=== PATIENT | female | born 1965 | race Caucasian/White ===

== ENCOUNTER → 2019-09-01 19:51 | Outpatient (BNVA) | payer BC, OTHER, SELFPAY | PROVIDERS: Visit Provider Nurse Practitioner | DX: R35.0 Frequency of micturition (principal) | CPT/HCPCS: 81003 ==

== ENCOUNTER 2020-01-23 10:13 | Outpatient (CLI) | payer BC, SELFPAY ==
--- NOTE | 2020-01-23 10:19 | XR_ITS ---
WS: [id number] HAND LEFT TECHNIQUE: 3 views of the left hand CLINICAL INFORMATION: left finger mass COMPARISON: None. FINDINGS: Normal third digit. Soft tissue edema fourth proximal phalanx. No visualized well-circumscribed soft tissue mass. Radiocarpal joint: Normal. Carpal bones: Normal. XR/XR hand LT min 3V* [id number] IMPRESSION: Soft tissue edema fourth proximal phalanx although no visualized well-circumscr ibed soft tissue mass
== END 2020-01-23 10:14 | disposition home or self-care (01) ==
LOC: RADWPI 10:17
PROVIDERS: Visit Provider Orthopaedic Surgery
DX: R22.9 Localized swelling, mass and lump, unspecified (principal); M79.89 Other specified soft tissue disorders
CPT/HCPCS: 73130

== ENCOUNTER 2021-01-08 10:17 | Outpatient (CLI) | payer OTHER, SELFPAY ==
--- NOTE | 2021-01-08 10:23 | MM_ITS ---
WS: [id number] BILATERAL DIGITAL SCREENING MAMMOGRAPHY WITH CAD CLINICAL INFORMATION: SCREENING HISTORY: Screening mammogram. No current complaints. COMPARISON: TECHNIQUE: Bilateral CC and MLO views. FINDINGS: Scattered fibroglandular densities bilaterally. No suspicious focal mass, asymmetry, calcifications, or architectural distortion. No evidence of malignancy. MM/[id number] IMPRESSION: BI-RADS: 1-Negative FOLLOW UP: 1 Year Follow-up Recommend return to annual screening mammography.
== END 2021-01-08 10:18 | disposition home or self-care (01) ==
LOC: RADSHAW 10:21
PROVIDERS: Visit Provider Nurse Practitioner Family
DX: Z12.31 Encounter for screening mammogram for malignant neoplasm of breast (principal)
CPT/HCPCS: 77067

== ENCOUNTER → 2021-01-22 13:30 | Outpatient (BNVA) | payer OTHER, SELFPAY | PROVIDERS: Visit Provider Obstetrics & Gynecology | DX: N39.3 Stress incontinence (female) (male) (principal); N81.4 Uterovaginal prolapse, unspecified; Z11.52 Encounter for screening for COVID-19 | CPT/HCPCS: 87635 ==

== ENCOUNTER 2021-01-28 14:21 | Observation (INO) | payer SELFPAY ==
[2021-01-26 11:08] VITALS: BMI 29.5
--- NOTE | 2021-01-26 12:43 | ANES.PREANE2 ---
Pre-Anesthetic Assessment Pre-Anesthetic Assessment: Height/Weight: Height 1.75 m Weight 90.718 kg Proposed Procedure: Operation Date: 01/28/21 07:00 Proposed Procedures p Total Vaginal Hysterectomy 97988 [id number] 66805 N81.4 N39.3(Not Applicable) - Nasir Oliver MD s Anterior Repair Anterior Colporrhaphy(Not Applicable) - Nasir Oliver MD s Posterior Repair Posterior Colporrhaphy(Not Applicable) - Nasir Oliver MD s Single incision sling(Not Applicable) - Nasir Oliver MD s Sacrospinous Ligament Suspension(Not Applicable) - Nasir Oliver MD Was Beta Alicia taken within 24 hours: N/A Was Clonidine taken within 24 hours: N/A Social: Social History: No alcohol and No tobacco Exam: Pre-Anes Outpt Exam: alert, oriented x 3, clear to auscultation bilaterally and regular rate & rhythm Airway: Submandibular: WNL Cervical ROM: WNL MP: 2 Dentition: Full History/ROS: No significant history except as noted CV/HEM: CV/HEM: Arrythmia Anesthetic Plan: ASA status: 2 Anesthesia: General Risk of > 500 ml blood loss (7ml/kg in children): No PFSH Anesthesia PFSH: Family History Father Colon cancer, Onset Age: 76 Heart disease Mother Hypertension Denies family history of Ovarian cancer Diabetes Clotting disorder Hyperlipidemia Breast cancer Anesthesia complication Bleeding disorder Uterine cancer Thyroid condition Stroke Social History (Updated 01/26/21 @ 09:37 by Tabitha Rae RN) Smoking and tobacco status: never smoked Alcohol intake: current Alcohol intake frequency: holidays/special occasions only Alcohol type: wine and hard liquor Substance/Drug Use: never Data Anesthesia Cardiac Studies: No Data to Display
[2021-01-28] VITALS (13 sets, daily range): BP systolic 110–127; BP diastolic 68–96; PULSE 67–99; RESP 16–18; TEMP 36.2–37; O2SAT 91–99
[2021-01-28] MEDS: sodium chloride 0.9% 500 ML IV (10:05)
[2021-01-28 10:07] LABS: Basophils # 0.1 10^3/uL (0.0-0.1); Basophils % 1.2 %; Eosinophils # 0.2 10^3/uL (0.0-0.8); Eosinophils % 2.7 %; Hematocrit 47.7 % (37.0-47.0); Hemoglobin 14.9 g/dL (11.5-15.3); Lymphocytes % 33.1 %; Mean Corpuscular HGB Conc 31.2 g/dL (30.0-36.0); Mean Corpuscular Hemoglobin 25.8 pg (28.0-34.0); Mean Corpuscular Volume 82.7 fL (81-99); Mean Platelet Volume 11.6 fL (7.4-10.4); Monocytes # 0.5 10^3/uL (0.2-0.9); Monocytes % 7.8 %; Neutrophils # 3.29 10^3/uL (1.8-7.7); Neutrophils % 54.9 %; Nucleated Red Blood Cells % 0 %; Platelet Count 240 10^3/cmm (130-400); Red Blood Count 5.77 10^6/uL (4.1-5.3); Red Cell Distribution Width 14.7 % (12.1-15.1)
[2021-01-28] MEDS: scopolamine 1.5 Patch 1 PATCH TRANSDERMA (10:09)
--- NOTE | 2021-01-28 11:03 | W.PM.OPSUD ---
Surgery/Procedure H&P Update DATE OF PROCEDURE: January 28, 2021 DATE H&P PERFORMED: 01/26/21 H&P UPDATE INFORMATION: I have reviewed H&P completed within last 30 days, I have examined patient prior to procedure and No changes to prior documentation PREOP DIAGNOSIS: Uterine prolapse stage III PLANNED PROCEDURE: Operation Date: 01/28/21 10:40 Proposed Procedures p Total Vaginal Hysterectomy 19665 [id number] 40826 64395 N81.4 N39.3(Not Applicable) - Nasir Oliver MD s Anterior Repair Anterior Colporrhaphy(Not Applicable) - Nasir Oliver MD s Posterior Repair Posterior Colporrhaphy(Not Applicable) - Nasir Oliver MD s Single incision sling(Not Applicable) - Nasir Oliver MD s Sacrospinous Ligament Suspension(Not Applicable) - Nasir Oliver MD
[2021-01-28 11:05] LABS: Alanine Aminotransferase 38 U/L (0-33); Alkaline Phosphatase 58 IU/L (35-105); Anion Gap 12.4 (5-19); Aspartate Amino Transferase 22 U/L (0-32); Blood Urea Nitrogen 9 mg/dL (6-20); Calcium 8.7 mg/dL (8.5-10.5); Carbon Dioxide 28 mmol/L (22-29); Chloride 104 mmol/L (98-107); Globulin 2.9 g/dL (1.3-4.6); Glomerular Filtration Rate 104.2 mL/min (90-130); Glucose 100 mg/dL (65-115); Osmolality Calculated 289 mOsm/kg (285-295); Potassium 4.4 mmol/L (3.5-5.1); Sodium 140 mmol/L (136-145); Total Bilirubin 0.3 mg/dL (0.15-1.2); Total Protein 6.9 g/dL (6.6-8.7)
--- NOTE | 2021-01-28 11:14 | ANES.PAUD2 ---
Pre-Anesthetic Update Pre-Anesthetic Assessment: Date of Surgery/Procedure: 01/28/21 Preop Diagnosis: Uterine prolapse stage III Proposed Procedure: Operation Date: 01/28/21 10:40 Proposed Procedures p Total Vaginal Hysterectomy 93925 66332 53603 19831 N81.4 N39.3(Not Applicable) - Nasir Oliver MD s Anterior Repair Anterior Colporrhaphy(Not Applicable) - Nasir Oliver MD s Posterior Repair Posterior Colporrhaphy(Not Applicable) - Nasir Oliver MD s Single incision sling(Not Applicable) - Nasir Oliver MD s Sacrospinous Ligament Suspension(Not Applicable) - Nasir Oliver MD Any changes to Pre-Anesthetic Assessment?: No Last Intake: Intake Last Liquid Date 01/27/21 Last Liquid Time 22:30 Last Solid Date 01/27/21 Last Solid Time 22:00 Labs Last 48hrs: Laboratory Results - last 48 hr 01/28/21 01/28/21 01/28/21 09:50 09:50 10:33 WBC 6.0 RBC 5.77 H Hgb 14.9 Hct 47.7 H MCV 82.7 MCH 25.8 L MCHC 31.2 RDW 14.7 Plt Count 240 MPV 11.6 H Neut % (Auto) 54.9 Lymph % (Auto) 33.1 [place] % (Auto) 7.8 Eos % (Auto) 2.7 Baso % (Auto) 1.2 Neut # (Auto) 3.29 Lymph # (Auto) 2.0 [place] # (Auto) 0.5 Eos # (Auto) 0.2 Baso # (Auto) 0.1 Nucleated RBC % (a uto) 0 Nucleated RBCs # 0.0 Sodium Cancelled 140 Potassium Cancelled 4.4 Chloride Cancelled 104 Carbon Dioxide Cancelled 28 Anion Gap Cancelled 12.4 BUN Cancelled 9 Creatinine Cancelled 0.6 GFR Calculation Cancelled 104.2 Glucose Cancelled 100 Calculated Osmolal ity Cancelled 289 Calcium Cancelled 8.7 Total Bilirubin Cancelled 0.3 AST Cancelled 22 ALT Cancelled 38 H Alkaline Phosphata se Cancelled 58 Total Protein Cancelled 6.9 Albumin Cancelled 4.0 Globulin Cancelled 2.9 Vitals: Temperature 97.6 F 01/28/21 09:33 Temperature Source Temporal Artery S can 01/28/21 09:33 Pulse Rate 73 01/28/21 09:33 Respiratory Rate 18 01/28/21 09:33 Blood Pressure 127/96 01/28/21 09:33 Blood Pressure Princess n 106 01/28/21 09:33 Pulse Oximetry 99 01/28/21 09:33 Oxygen Delivery Me thod 01/28/21 09:33 Exam: Pre-Anes Outpt Exam: alert, oriented x 3, clear to auscultation bilaterally and regular rate & rhythm Cardiac Studies: No Data to Display
[2021-01-28] MEDS: estrogens Conjugated Cream 30 gm 1 APPLIC VAGINAL (13:04)
--- NOTE | 2021-01-28 14:06 | P.OP_ITS ---
Operative Report Date of procedure: January 28, 2021 Pre-op Diagnosis: Uterine prolapse stage III Post-op diagnosis: same Procedure Done: Total vaginal hysterectomy with single incision mid urethral sling. Anterior colporrhaphy augmented with allograft. Posterior colporrhaphy. Sacrospinous fixation. Cystoscopy Specimens removed/disposition: Uterus Surgeon: Nasir Oliver MD Anesthesia: General Estimated blood loss (mL): 200 IV fluids (mL): 1,300 Urine output (mL): 400 Condition: stable Disposition: PACU Procedure: After obtaining informed consent, the patient was taken to the operating room and placed in the supine position, given general anesthesia, and prepped and draped in sterile fashion. The abdomen, vulva and vagina were prepped and draped in a sterile manner. A time out procedure was performed. The vaginal mucosa was then injected in the midline with normal saline. The anterior vaginal mucosa beneath the midurethra was infiltrated with 2% lidocaine with epinephrine. A vertical midline incision was made beneath the midurethra, nearly 1.5 cm length. Careful submucosal dissection was performed bilaterally up to the interior portion of the inferior pubic ramus. The insertion of adductor longus tendon on the patient?s pubic ramus was identified as reference land thelma. Palpated the notch along the internal edge of ischiopubic ramus where the adductor longus tendon and the inferior pubic ramus meet. The Altis single incision sling (SIS) was selected. With thin porcine graft the mesh of the sling was lined anteriorly and posteriorly with the graft. Then the needle of the SIS inserted aiming at the location of this notch. One of the integrated self- fixating tips place onto the needle by sliding it over the end of the needle. The needle/sling assembly was inserted toward the location of identified reference notch making sure that the flat of the handle is perpendicular to the desired path. The needle was tracked along the posterior surface of the ischiopubic ramus until the midline thelma on the mesh is approximately at the midline position under the urethra. The needle was removed and the same was repeated on the contralateral side until the appropriate sling tension under the urethra was achieved ensuring that the mesh lays flat. The needle was removed and vaginal incision was closed in a running interlocking fashion with 2-0 Vicryl. The vaginal mucosa was scored in the midline with the Bovie approximately 1 cm medial to the urethral meatus to 1 cm distal to the [vaginal cuff/cervix]. This vaginal mucosa was then undermined and then incised in the midline with the Metzenbaum scissors. The lateral aspects of the vaginal mucosa were then grasped with the Allis clamps and the vaginal mucosa was then dissected off the underlying fascia with the Metzenbaum scissors. Again, there was noted to be quite a bit of oozing at the incision, which was controlled with cautery. After adequate dissection was performed, bilaterally. An The coloplast allograft is modified at time of application to fit spacea, 3 x 3 cm piece . The coloplast allograft placed in front of cystocele ready to be implanted with the Basement Membrane facing the vagina mucosa. Suture is placed at distal end of graft and placed towards vaginal cuff. Final suture is placed on proximal portion of the graft to complete the placement overlying the bladder. Then Interrupted vertical mattress sutures of 0 Vicryl were used to elevate the cystocele superiorly. The excessive vaginal mucosa was then trimmed with the Metzenbaum scissors and the vaginal mucosa was then reapproximated in the running interlocking fashion with 2-0 Vicryl. The posterior vaginal mucosa is opened in the routine fashion as described previously in Posterior Repair. A finger is inserted through the incision in the posterior vaginal mucosa, dissecting out the rectovaginal space (RVS). The right rectal pillar (RRP) is identified. The rectal pillar can be bluntly perforated either with the [finger or with the tip of a long Anjali clamp]. A [Breisky- Navratil] retractor is used for exposing the rectovaginal space in order to enter the pararectal space with retraction of the cardinal ligament, vagina, and rectum. Displacing the rectum to the left and the cardinal ligament and ureter anteriorly. A sponge dissector is used to bluntly dissect the sacrospinous ligament removing areolar tissue. The ischial spine was palpated directly, and a area approximately 2 cm medial to the spine was selected for insertion of the Anchorsure transvaginal sacrospinous fixation system. One end of the suture of Anchoresure system inserted through the sacrospinous ligament is placed through the muscular layer of the vagina. In a similar manner, the second suture is placed. The opposite end of the suture in the sacrospinous ligament is left free and held on a small hemostat. Then traction on this suture will draw the vaginal vault directly to the ligament, where a sq uare knot affixes it to the sacrospinous ligament. After the twan stich is tied the second safety stich is tied. Then the colporrhaphy/vaginal repair is carried out in routine fashion. Posterior colpoperineorrhaphy was performed with Allis clamps to grasp hymenal caruncles to allow 2-3 fingerbreadths caliber; infiltrated with 1% Lidocaine with epinephrine before triangular incision to excise fibrotic subdermal rectovaginal tissue from old perineal laceration. Fascia dissected off towards vaginal cuff and deemed weakened and thinned-out in midline; colporrhaphy performed with interrupted mattress 0-Vicryl sutures
[2021-01-28] MEDS: ketorolac 30 mg/mL INJ IVP ×2 (15:15→20:41)
--- NOTE | 2021-01-28 15:57 | PC.NURSE ---
Pt complains her external vagina is burning. She rates the sensation 7/10; however describes it as burning and not pain. Gave pt tucks pads to help.
--- NOTE | 2021-01-28 17:13 | ANE.PACU2 ---
Inpatient post-anesthesia follow up: Vital signs: Temperature 97.7 F Pulse Rate 68 Respiratory Rate 16 Blood Pressure 124/79 Pulse Oximetry 96 Oxygen Delivery Me thod Room Air Oxygen Flow Rate 8 Fraction of Inspir ed Oxygen Hydration adequate: Yes Nausea and vomiting: No Pain level: 1 Mental status: Baseline
[2021-01-28] MEDS: acetaminophen 325 mg Tablet 650 MG PO (18:37)
[2021-01-28] MEDS: docusate sodium 100 mg Capsule PO (18:38)
[2021-01-28] MEDS: HYDROcodone-acetaminophen 5-325 mg Tablet PO (19:40)
[2021-01-28] MEDS: ondansetron 2 mg/ML SDV 2 mL 4 MG IVP (20:42)
[2021-01-29 00:24] VITALS: BP 105/69; PULSE 71; RESP 16
[2021-01-29] MEDS: ketorolac 30 mg/mL INJ IVP (02:33)
[2021-01-29] MEDS: HYDROcodone-acetaminophen 5-325 mg Tablet PO (04:31)
[2021-01-29 04:57] LABS: Hematocrit 37.3 % (37.0-47.0); Hemoglobin 11.8 g/dL (11.5-15.3); Mean Corpuscular HGB Conc 31.6 g/dL (30.0-36.0); Mean Corpuscular Volume 82.3 fL (81-99); Platelet Count 220 10^3/cmm (130-400); Red Blood Count 4.53 10^6/uL (4.1-5.3); Red Cell Distribution Width 14.6 % (12.1-15.1); White Blood Count 10.9 10^3/uL (4.0-10.0)
[2021-01-29 05:05] VITALS: BP 101/63; PULSE 78; RESP 17
[2021-01-29] MEDS: docusate sodium 100 mg Capsule PO (08:28)
[2021-01-29 10:43] VITALS: BP 99/63; PULSE 74; RESP 14; TEMP 36.7; O2SAT 98
[2021-01-29] MEDS: ibuprofen 800 mg tablet PO (10:45)
--- NOTE | 2021-01-29 14:18 | P.DS_ITS ---
Discharge Providers CABLE REELER Date of Admission: 01/28/21 14:21 Date of Discharge: 01/29/21 Attending Provider at Admission: Nasir Oliver MD Attending Provider at Discharge: Nasir Oliver MD Diagnoses at Discharge Discharge Diagnosis (1) Cystocele with uterine prolapse: Status: Acute Reason for Visit Reason for Visit: uterine prolapse Hospital Course Hospital Course Mrs. Hernandez 5-year-old female with uterine prolapse stage III, had for planned total vaginal hysterectomy, anterior colporrhaphy augmented with allograft, single incision mid urethral sling, posterior colporrhaphy and sacrospinous fixation. Procedures were performed without complications. Overnight observation was uneventful. She is afebrile and hemodynamically stable. Tolerating diet well. Ambulating without difficulty. Her PVR above normal. She was counseled she will be discharged with a Salas catheter in place and to return Tuesday to the clinic to remove Salas catheter. Physical Exam Narrative: EXAM NARRATIVE: GA: Alert and oriented ?3. HEENT: WNL. Heart: Regular rate and rhythm. Lungs: Clear to auscultation bilaterally. Abdomen: Bowel sounds present, nontender TUB MENDER: Spotting. Extremities: No edema, no cyanosis, no calves pain. Urinary Catheter Management^: Salas: Cath Placed During This Visit: yes, but has since been removed by the nurse Reason for Continuing Indwelling Catheter: Decision to DC Catheter Urinary Catheter Date of Insertion: 01/28/21 Urinary Catheter Time of Insertion: 11:38 Date Urinary Catheter Removed: 01/29/21 Time Urinary Catheter Discontinued: 04:30 Discharge Data Data Completed and Pending: Pending at discharge Category Date Time Status ES surgery / GI i mages Routine Exams 01/28/21 Taken Pathology: Surgic al [PTH] Routine Pth 01/28/21 13:14 Received Labs from last 24 hours 01/29/21 04:40 WBC 10.9 H RBC 4.53 Hgb 11.8 Hct 37.3 MCV 82.3 MCH 26.0 L MCHC 31.6 RDW 14.6 Plt Count 220 MPV 11.0 H Vitals: Last Vital Signs Temp 98.0 F 01/29/21 10:43 Pulse 74 01/29/21 10:43 Resp 14 01/29/21 10:43 BP 99/63 01/29/21 10:43 Pulse Ox 98 01/29/21 10:43 Discharge Plan Discharge Patient Disposition: Home Condition: Stable Prescriptions: New Colace 100 mg capsule 100 mg PO BID Qty: 60 RF: 0 acetaminophen 325 mg capsule 325 mg PO Q4H PRN (Reason: fever or pain) Qty: 60 RF: 0 ketorolac 10 mg tablet 10 mg PO TID Qty: 60 RF: 0 Continued Natural Supplements PO .daily RF: 0 cetirizine 10 mg tablet 10 mg PO DAILY PRN (Reason: allergies) RF: 0 glucosamine-chondroitin 900 mg tablet 1,500 mg PO DAILY RF: 0 Discharge Orders: Discharge Order (Routine); Ordered 01/29/21 Ordered By: Nasir Oliver Referrals: Nasir Oliver MD [Physician] - 02/16/21 9:45 am (Tuesday for catheter removal 2 week post op appointment 02/16/21 at 0945 6 week post op appointment 03/13/21 at 0900 ) Discharge Diet: Soft Mechanical Discharge Activity: Increase activity as tolerated Patient Instructions: Vaginal Hysterectomy (DC), Anterior Vaginal Repair (DC), Bladder Sling Procedures (DC), Posterior Vaginal Repair (DC), OB Discharge Report, OB Food/Drug Interaction Guide, Opioid Safety Activity Restrictions/Additional Instructions: 1. Please call [facility] on next working day to make your post-operative appointment in 2 weeks to return to the clinic Tuesday for catheter removal. 2. Please stay home until you come back to the clinic on first post-operative check up. 3. Please follow instructions on your medications CAREFULLY. 4. If you have abdominal incision, do not cover it unless dressing is necessary because of drainage. OK to shower, but avoid bath. Leave steri-strips until they fall off. If they are still on one week after surgery, you may remove them. 5. If you had vaginal surgery or vaginal repair, Dr. Oliver may instruct you to take SITZ bath. 6. Yellow, blood tinged odorous vaginal discharge is usually normal after hysterectomy or vaginal surgeries. 7. No sexual intercourse, tampons, or douches until you are completely released from the post-operative care. 8. Avoid constipation by eating right and maybe using some Metamucil or Milk of Magnesia. 9. All prescription refills are given during the working hours. Please do no wait till it runs out. Call the clinic at [phone] before your medication runs out. The clinic will get in touch with your doctor to prescribe medications if necessary. 10. Please remain within 40 mile radius from our hospital because emergencies do happen now and then during the post-operative period. 11. If you have stairs at home, take one step at a time slowly and minimize the number of trips. It helps to stay in one floor for the next few days. No lifting except what you can lift by one hand until you are released from the post-operative care. 12. Driving is discouraged until you are well healed. It may be 3-4 weeks before you feel strong enough to drive. You should be able to turn and look through the rear window without pain and you should be able to push the brake pedal very hard without pain before you drive. No fast rules, but SAFETY should be your primary concern. DO NOT drive if you are on sedating medications such as narcotics. 13. Call the clinic (during working hours) to make urgent appointment or go to the Emergency room, if any of the following occurs: i. Vaginal bleeding becomes heavy, more than a period. ii. Incision becomes red and sore, or drains pus. iii. Your temperature is over 100.4 or you have chill. iv. IV site becomes red and swollen (a little ``knot?? is usually OK) v. Persistent nausea and vomiting vi. Persistent constipation or diarrhea vii. Rash or allergic reaction to medications. Discharge Attestations CABLE REELER Time Spent in Discharge Care*: greater than 30 min Coding Level of Care Code Acute Personnel Representative for [facility] Fwd Diagnoses Cystocele with uterine prolapse N81.4
[2021-01-29 14:55] VITALS: BP 108/65; PULSE 69; RESP 14; TEMP 36.8; O2SAT 96
== END 2021-01-29 15:22 | disposition home or self-care (01) ==
LOC: OBGYN 14:21
PROVIDERS: Admitting Provider Obstetrics & Gynecology; Visit Provider Obstetrics & Gynecology
PROC: (CPT 57288; principal; 2021-01-28 10:30)
PROC: 0JQC0ZZ Repair Pelvic Region Subcutaneous Tissue and Fascia, Open Approach (ICD-10-PCS; CPT 57240; 2021-01-28 10:30)
PROC: (CPT 57250; 2021-01-28 10:30)
PROC: (CPT 57288; 2021-01-28 10:30)
PROC: (CPT 57282; 2021-01-28 10:30)
DX: N81.3 Complete uterovaginal prolapse (principal)
CPT/HCPCS: 57288; 58260; 36415; 51702; 51798; 80053; 85025; 85027; 88305; C1713; C1762; G0378; J0694; J1100; J1170; J1885; J2405; J2704; J3010; J3490; J7040; Q9968

== ENCOUNTER 2022-01-27 09:48 | Outpatient (CLI) | payer OTHER, SELFPAY ==
--- NOTE | 2022-01-27 10:03 | MM_ITS ---
WS: [id number] BILATERAL SCREENING DIGITAL BREAST TOMOSYNTHESIS MAMMOGRAM WITH CAD HISTORY: SCREENING COMPARISON: 01/08/2021 and 07/12/2019 Bilateral CC and MLO views with tomosynthesis and synthetic mammography submitted. Computer aided det ection analyzed. Breast composition: There are scattered areas of fibroglandular density. No suspicious masses, microc alcifications or architectural distortion. Stable intramammary lymph nodes towards the RIGHT axillary tail. MM/[id number] IMPRESSION: BI-RADS: 2-Benign FOLLOW UP: 1 Year Follow-up
== END 2022-01-27 09:49 | disposition home or self-care (01) ==
LOC: RAD 09:50
PROVIDERS: Visit Provider Family Medicine
DX: Z12.31 Encounter for screening mammogram for malignant neoplasm of breast (principal)
CPT/HCPCS: 77063; 77067

== ENCOUNTER 2023-02-14 13:41 | Outpatient (CLI) | payer OTHER, SELFPAY ==
--- NOTE | 2023-02-14 13:48 | MM_ITS ---
WS: [id number] BILATERAL 3D TOMOSYNTHESIS DIGITAL DIAGNOSTIC MAMMOGRAPHY WITH CAD CLINICAL INFORMATION: RT BR NODULE HISTORY: Bilateral breast lumps COMPARISON: 2021 TECHNIQUE: Bilateral CC, MLO, and ML views. FINDINGS: Scattered fibroglandular densities bilaterally. Normal parenchymal tissue deep to the bilateral palpa ble markers. Ultrasound is pending. A few incidental punctate calcifications. No other suspicious abn ormalities ULTRASOUND BREAST BILATERAL TECHNIQUE: Ultrasound bilateral breast focused area of concern. CLINICAL INFORMATION: RT BR NODULE FINDINGS: RIGHT BREAST: Ultrasound RIGHT breast at the 5 and 6 clock position. Normal underlying parenchymal ti ssue. No cystic or solid lesions. No suspicious lesions to target for biopsy. LEFT BREAST: Ultrasound LEFT breast at the 5 and 6 clock position. Normal underlying parenchymal tiss ue. No cystic or solid lesions. No suspicious lesions to target for biopsy. MM/[id number] BI-RADS: 2-Benign FOLLOW UP: 1 Year Follow-up Recommend return to annual screening mammography.
== END 2023-02-14 13:42 | disposition home or self-care (01) ==
PROVIDERS: Visit Provider Advanced Practice Midwife
DX: N63.14 Unspecified lump in the right breast, lower inner quadrant (principal); N63.23 Unspecified lump in the left breast, lower outer quadrant
CPT/HCPCS: 76642; 77062; G0279

== ENCOUNTER 2024-02-16 13:26 | Outpatient (CLI) | payer OTHER, SELFPAY ==
--- NOTE | 2024-02-16 13:29 | MM_ITS ---
WS: [id number] Bilateral screening 3D tomosynthesis digital mammogram, 02/16/2024 Clinical Data: SCREENING Comparison: 02/14/2023, 01/27/2022, 01/08/2021, 07/12/2019, 05/22/2018, 03/11/2017, 02/25/2016, 02/19/2015, , 08/09/2013, 11/17/2009, 10/17/2008. Findings: The breast parenchymal pattern shows fibroglandular tissue. No spiculated masses or clustered calcifi cations are seen. There are no secondary signs of carcinoma. MM/[id number] Impression: 1. Negative bilateral mammogram unchanged. 2. Recommend annual screening mammograms. BIRADS: 1-Negative FOLLOW UP: 1 Year Follow-up The CAD par[employer] ticket checker was used.
== END 2024-02-16 13:27 | disposition home or self-care (01) ==
LOC: RAD 13:27
PROVIDERS: Visit Provider Advanced Practice Midwife
DX: Z12.31 Encounter for screening mammogram for malignant neoplasm of breast (principal)
CPT/HCPCS: 77063; 77067